=== PATIENT | female | born 1975 | race Two or more races ===

== ENCOUNTER → 2016-11-11 | Day surgery (SDC) | payer BC ==
[2016-11-08 15:37] VITALS: BMI 20.7
[~2016-11-11] MED LIST: ACETAMINOPHEN 1000 MG/100 ML VIAL (NON FORMULARY) IVPB ONE; ACETAMINOPHEN INJECTION 100 ML IVPB ONE; DEXAMETHASONE SOD PHOSPHATE 4 MG/1 ML VIAL ONE; DEXTROSE 5%-0.45% SALINE 1,000 ML IV SCH; GLYCOPYRROLATE 0.2 MG/1 ML VIAL ONE; IBUPROFEN 800 MG/8 ML IJ IVPB PRN; KETOROLAC TROMETHAMINE 30 MG/1 ML VIAL ONE; LACTATED RINGERS SOLUTION 1,000 ML IV SCH; MIDAZOLAM HCL 2 MG/2 ML SINGLE DOSE VIAL ONE; ONDANSETRON 4 MG/2 ML VIAL IVPUSH PRN; PROMETHAZINE HCL 25 MG/1 ML VIAL IVPUSH PRN; PROPOFOL 20 ML ONE; ceFAZolin SODIUM 1 GM VIAL IVPB ONE; ceFAZolin SODIUM 1 GM VIAL ONE
--- NOTE | 2016-11-11 15:41 | HP ---
History & Physical Update - History History: No Change - Physical Physical: No Change - Assessment Assessment: No Change - Plan Plan: No Change
[2016-11-11 19:10] VITALS: BP 103/65; PULSE 50
[2016-11-11 20:09] VITALS: TEMP 98
--- NOTE | 2016-12-22 09:53 | OP ---
DATE OF OPERATION: 11/11/2016 PREOPERATIVE DIAGNOSIS: Right renal calculus. POSTOPERATIVE DIAGNOSIS: Right ureteral calculus. PROCEDURE: Cystoscopy, right retrograde pyelogram, right ureteroscopy, laser lithotripsy, and stent placement. ANESTHESIOLOGIST: Orville Reyes M.D. ANESTHESIA: General. SURGEON: Mariano Kelley M.D. ESTIMATED BLOOD LOSS: Minimal. FINDINGS: Stone in the right kidney. PREOPERATIVE INDICATION: The patient is a 41-year-old female who has right-sided flank pain and has a right-sided stone. She comes to OR for laser lithotripsy. OPERATION: Patient was brought to the OR, placed on the table in the supine position, given general anesthesia and placed in the modified lithotomy position. The groin was then prepped and draped sterilely. Cystoscopy was performed. The urethra and bladder appeared to be unremarkable. The right ureteral orifice is visualized, and the wire was passed up into the right kidney. This was done under fluoroscopic guidance. A 10 Marshallese catheter was used orifice, and a second wire was passed up as well. Over the second wire a flexible ureteroscope was passed easily into the right kidney. Retrograde pyelogram revealed no hydronephrosis. The stone was visualized and broken up with a Holmium Laser Fiber. The scope was removed. No other stones were seen along the course of the ureter. A 6 x 22 Double J ureteral stent was left in place with one loop in the kidney, and one loop in the bladder. The bladder was emptied. The patient was woken up. MARIANO KELLEY M.D. [id number]
== END | disposition home or self-care (01) ==
LOC: JASU-SURG 13:57
PROVIDERS: ATTEND Urology
PROC: 0T768DZ Dilation of Right Ureter with Intraluminal Device, Via Natural or Artificial Opening Endoscopic (ICD-10-PCS; 2016-11-11)
PROC: 0TF68ZZ Fragmentation in Right Ureter, Via Natural or Artificial Opening Endoscopic (ICD-10-PCS; principal; 2016-11-11 15:30)
DX: N20.1 Calculus of ureter (principal)
CPT/HCPCS: 76000-TC; 94760

== ENCOUNTER 2020-01-27 16:55 | Emergency (ER) | payer BC ==
[2020-01-27 17:10] VITALS: BP 101/68; PULSE 78; TEMP 98.3; BMI 22.3
[2020-01-27] MEDS ORDERED: ACETAMINOPHEN 500 MG TABLET (FP) PO ONE (17:19)
[2020-01-27] MEDS ORDERED: ACETAMINOPHEN 325 MG TABLET (FP) ONE (17:23)
== END 2020-01-27 18:00 | disposition home or self-care (01) ==
LOC: FER 16:55
DX: M94.0 Chondrocostal junction syndrome [Tietze] (principal)
CPT/HCPCS: 71046-TC-FY; 93005; 99285-25; C9803; U0003

== ENCOUNTER 2023-12-12 04:34 | Day surgery (SDC) | payer BC ==
[2023-12-05 12:59] VITALS: BMI 22.4
[2023-12-12 11:49] VITALS: BP 98/70; PULSE 63; RESP 16; TEMP 98
== END 2023-12-12 10:45 | disposition home or self-care (01) ==
LOC: JASU-ENDO 04:34
PROVIDERS: ATTEND Internal Medicine Gastroenterology
PROC: 0DB98ZX Excision of Duodenum, Via Natural or Artificial Opening Endoscopic, Diagnostic (ICD-10-PCS; 2023-12-12)
PROC: 0DB78ZX Excision of Stomach, Pylorus, Via Natural or Artificial Opening Endoscopic, Diagnostic (ICD-10-PCS; 2023-12-12)
PROC: 0DB68ZX Excision of Stomach, Via Natural or Artificial Opening Endoscopic, Diagnostic (ICD-10-PCS; 2023-12-12)
PROC: 0DB28ZX Excision of Middle Esophagus, Via Natural or Artificial Opening Endoscopic, Diagnostic (ICD-10-PCS; 2023-12-12)
PROC: 0DB38ZX Excision of Lower Esophagus, Via Natural or Artificial Opening Endoscopic, Diagnostic (ICD-10-PCS; 2023-12-12)
PROC: 0DB48ZX Excision of Esophagogastric Junction, Via Natural or Artificial Opening Endoscopic, Diagnostic (ICD-10-PCS; 2023-12-12)
PROC: 0DJD8ZZ Inspection of Lower Intestinal Tract, Via Natural or Artificial Opening Endoscopic (ICD-10-PCS; principal; 2023-12-12 09:00)
DX: Z12.11 Encounter for screening for malignant neoplasm of colon (principal); K29.50 Unspecified chronic gastritis without bleeding; B96.81 Helicobacter pylori [H. pylori] as the cause of diseases classified elsewhere; K21.00 Gastro-esophageal reflux disease with esophagitis, without bleeding; K64.8 Other hemorrhoids
CPT/HCPCS: 81025; 88305-TC; 88342-TC

== ENCOUNTER 2024-03-09 13:13 | Emergency (ER) | payer BC ==
[2024-03-09 13:19] VITALS: BP 108/74; PULSE 73; RESP 16; TEMP 97.3; BMI 22.3
== END 2024-03-09 14:59 | disposition home or self-care (01) ==
LOC: FER 13:13
DX: R05.9 Cough, unspecified (principal); R09.81 Nasal congestion
CPT/HCPCS: 71046-TC-FY; 99283-25